=== PATIENT | female | born 1990 | race Caucasian/White ===

== ENCOUNTER 2017-08-04 08:04 | Inpatient (IN) | payer OTHER ==
[2017-08-04] MEDS ORDERED: OXYTOCIN/RINGERS LACTATE 1,000 ML IV PRN (08:34)
[2017-08-04] MEDS ORDERED: TERBUTALINE SULFATE 1 MG/ML VIAL IV PRN (08:34)
[2017-08-04] MEDS ORDERED: OLIVE OIL 118 ML BTL MISC PRN (08:34)
[2017-08-04] MEDS ORDERED: IBUPROFEN 600 MG TAB PO PRN (08:34)
[2017-08-04] MEDS ORDERED: EPSOM SALT 454 GM TP PRN (08:34)
[2017-08-04] MEDS ORDERED: LR 500 ML IV PRN (08:35)
[2017-08-04] MEDS ORDERED: LIDOCAINE 1% 300 MG/30 ML SDV ONE (08:54)
[2017-08-04] MEDS ORDERED: OLIVE OIL 118 ML BTL ONE (08:54)
[2017-08-04] MEDS ORDERED: TERBUTALINE SULFATE 1 MG/ML VIAL ONE (08:55)
[2017-08-04] MEDS ORDERED: MISOPROSTOL 200 MCG TAB ONE (08:55)
[2017-08-04] MEDS ORDERED: OXYTOCIN 10 UNIT/ML VIAL ONE (08:55)
[2017-08-04] MEDS ORDERED: AMMONIA AROMATIC 1 EACH AMP IH ONE (08:55)
[2017-08-04] MEDS ORDERED: OXYTOCIN/RINGERS LACTATE 500 ML IV SCH (09:00)
[2017-08-04 09:30] LABS: % IMMATURE GRANULYOCYTES 1.6 % (0.0-1.1); ABSOLUTE IMMATURE GRANULOCYTES 0.25 10^3/uL (0.00-0.10); ADD DIFF? NO; ADD MORPH? NO; ADD SCAN? NO; ATYPICAL LYMPHOCYTE FLAG 0 (0-99); FRAGMENT RBC FLAG 0 (0-99); HEMATOCRIT 37.7 % (38.0-47.0); HEMOGLOBIN 13.3 g/dL (12.6-16.3); LEFT SHIFT FLG 10 (0-99); LIPEMIA HEMOLYSIS FLAG 90 (0-99); MEAN CELL HEMOGLOBIN 32.3 pg (27.9-34.1); MEAN CELL HEMOGLOBIN CONCENTR. 35.3 g/dL (32.4-36.7); MEAN CELL VOLUME 91.5 fL (81.5-99.8); MEAN PLATELET VOLUME 9.7 fL (8.7-11.7); PLATELET CLUMPS FLAG 10 (0-99); PLATELET COUNT 324 10^3/uL (150-400); RED BLOOD CELL COUNT 4.12 10^6/uL (4.18-5.33); RED CELL DISTRIBUTION WIDTH 13.2 % (11.5-15.2)
[2017-08-04] MEDS: LR 1,000 ML IV PRN (10:00)
[2017-08-04] MEDS: OXYTOCIN/LR *STANDARD DOSE PROTOCOL IV SCH (10:00)
--- NOTE | 2017-08-04 11:22 | GHP ---
[f rep st] PREOP HISTORY AND PHYSICAL DATE OF ADMISSION: 08/04/2017 ADMISSION DIAGNOSIS: 1. Intrauterine at 39 and 3/7 weeks gestation. 2. Spontaneous rupture of membranes. HISTORY: The patient is a 27-year-old, 1, para 0, who is 39 and 3/7 weeks' gestation. She h as spontaneous rupture of membranes just after midnight this morning. The patient has waited 8+ hour s and has not had any contractions increasing in frequency or intensity, so she came in for augmentat ion of labor. On arrival, the patient was noted to be grossly ruptured. She was 1 cm dilated, 50% effaced, and -2 station. heart tracing was category 1, and she was not having any contractions. Management op tions were reviewed. Decision was made to proceed with starting with Pitocin augmentation. The elier ent plans to get an epidural for pain management, but might want to try nitrous prior to that. The patient received initiated care in the 1st trimester with the [facility] in [place] and transferred to [facility] at 18 weeks gestation due to desire to deliver at [facility]. The patient's has been uncomplicated. She did get a growth ultrasound in the 3rd trimester secondary to 92nd percentile, estimated weight, and her anatomy. Her ultr asound at 33 weeks showed 89th percentile. MEDICAL HISTORY: Significant for history of pyelonephritis. History of hematuria with unknown etiol ogy in . MEDICATIONS: vitamins, iron, and DHA. SURGICAL HISTORY: [place] teeth extraction. ALLERGIES: No known drug allergies. She is allergic to bees. SOCIAL HISTORY: Patient is . She works as a property field adjuster. She denies tobacco, alcohol, or drug use. FAMILY MEDICAL HISTORY: Noncontributory. MISSION MANAGER HISTORY: Menarche age 12. Periods were irregular, lasting 4 days. She is a 1, para 0. The patient's has been uncomplicated. She has been followed for size greater than date s and her most recent ultrasound a few weeks ago showed baby in the 89th percentile. Patient denies any history of any abnormal Pap smears or sexually transmitted diseases. REVIEW OF SYSTEMS: 10-point review of systems is negative. She states there is loss of clear fluid. She denies any vaginal bleeding. There is good movement. Denies any contractions. Denies a ny headache or changes in vision, nausea, or vomiting. PHYSICAL EXAM: VITAL SIGNS: Stable. GENERAL APPEARANCE: Alert and oriented x3. PSYCH: She has a ppropriate affect. NECK: Mobile and supple. HEART: Rate is . LUNGS: Clear to auscultat ion bilaterally. ABDOMEN: Gravid. Nondistended, nontender. EXTREMITIES: No calf tenderness or alejandra ma. PELVIC: She is 1 cm dilated, 50% effaced, and -2 station. Grossly ruptured infant in the verte x presentation. heart tracings category She is now having occasional contractions now that she is on Pitocin. LABS: Blood type A positive. Antibody screen negative. Rubella immune. GBS negative. HB sAg negative. HIV negative. Her 50 g glucose was 101. She had negative Trio screen. Negative AFP. Declined other genetic testing. ASSESSMENT/PLAN: 27-year-old 1, para 0, who is 39 and 3/7 weeks gestation with spontaneous r upture of membranes and not in labor after 10 hours. The patient is started on Pitocin and will be m anaged actively. /[id number]/MODL
--- NOTE | 2017-08-04 12:54 | OBPROG ---
Labor Progress Note Assessment/Plan: Assessment: Plan: Subjective/Intrapartum Course: 08/04/17 12:51 patient occasionally feeling contractions. starting to get stronger. Pitocin is at 10 mu. status is reassuring. contractions regular. if not much more uncomfortable in 2 hours will reexamine and if no further change will dc pitocin and give po cytotec. if progresses into labor will reexamine. Objective: 08/04/17 09:10 Patient ABO/Rh A POSITIVE 08/04/17 09:10 - SVE Membranes: SROM Amniotic Fluid Color: Clear - Contraction Pattern Assessment Current Contraction Pattern: Regular - FHR Assessment Sifuentes FHR (bpm): 130 FHR Pattern Variability: Moderate FHR Category: 1 - AP Antepartum Course: 08/04/17 12:54 initiated care in [place]. transferred to [facility] at 18 weeks. had persistent hematuria in early which resolved. lga on ultrasound. growth ultrasound at 34 weeks 89%. SROM just after midnight. no active labor so came in after 8 hours for augmentation. Oxytocin Orders Assessment - Pre-Induction/Augmentation Assessment Gestational Age: 39 week(s) and 3 day(s) ICD10 Worksheet Patient Problems: Problems Problem Status Onset Spontaneous rupture of membranes Acute Spontaneous vaginal delivery Acute
[2017-08-04] MEDS ORDERED: MISOPROSTOL 100 MCG TAB PO ONE ×2 (15:45→21:00)
--- NOTE | 2017-08-04 19:14 | OBPROG ---
Labor Progress Note Assessment/Plan: Assessment: Plan: Subjective/Intrapartum Course: 08/04/17 12:51 patient occasionally feeling contractions. starting to get stronger. Pitocin is at 10 mu. status is reassuring. contractions regular. if not much more uncomfortable in 2 hours will reexamine and if no further change will dc pitocin and give po cytotec. if progresses into labor will reexamine. 08/04/17 19:12 patient was up to 14 mu of pitocin and only feeling mild contractions. had another big gush of clear fluid. SVE by nurse - no cervical change. pitocin was discontinued. patient was allowed to eat and then given a dose of 25 mcg of cytotec at 1600. patient is sleeping and having occasional contractions. status is reassuring. if not in labor 4 hours after first dose of cytotec , will repeat dose q 4 hours until patient is in labor or cervix is more favorable. Objective: 08/04/17 09:10 Patient ABO/Rh A POSITIVE 08/04/17 09:10 - SVE Dilation (cm): 1, 2 Effacement (%): 50 Station: -2 Membranes: SROM Amniotic Fluid Color: Clear - Contraction Pattern Assessment Current Contraction Pattern: Regular - FHR Assessment Sifuentes FHR Pattern Variability: Moderate FHR Category: 1 - AP Antepartum Course: 08/04/17 12:54 initiated care in [place]. transferred to [facility] at 18 weeks. had persistent hematuria in early which resolved. lga on ultrasound. growth ultrasound at 34 weeks 89%. SROM just after midnight. no active labor so came in after 8 hours for augmentation. Oxytocin Orders Assessment - Pre-Induction/Augmentation Assessment Gestational Age: 39 week(s) and 3 day(s) ICD10 Worksheet Patient Problems: Problems Problem Status Onset Spontaneous rupture of membranes Acute
--- NOTE | 2017-08-04 21:48 | OBPROG ---
Labor Progress Note Assessment/Plan: Assessment: Plan: Subjective/Intrapartum Course: 08/04/17 12:51 patient occasionally feeling contractions. starting to get stronger. Pitocin is at 10 mu. status is reassuring. contractions regular. if not much more uncomfortable in 2 hours will reexamine and if no further change will dc pitocin and give po cytotec. if progresses into labor will reexamine. 08/04/17 19:12 patient was up to 14 mu of pitocin and only feeling mild contractions. had another big gush of clear fluid. SVE by nurse - no cervical change. pitocin was discontinued. patient was allowed to eat and then given a dose of 25 mcg of cytotec at 1600. patient is sleeping and having occasional contractions. status is reassuring. if not in labor 4 hours after first dose of cytotec , will repeat dose q 4 hours until patient is in labor or cervix is more favorable. 08/04/17 21:45 patient has been able to rest. feeling mild cramping. received second dose of cytotec. vertex confirmed by ultrasound. sve 80/-2. discussed rationale for changing from pitocin to cytotec. if not in active labor 5 hours after last cytotec dose will start pitocin. patient plans epidural. status reassuring. patient continues to leak clear fluid. Objective: 08/04/17 09:10 Patient ABO/Rh A POSITIVE 08/04/17 09:10 - SVE Dilation (cm): 3 Effacement (%): 80 Station: -2 Membranes: SROM Amniotic Fluid Color: Clear - Contraction Pattern Assessment Current Contraction Pattern: Regular - FHR Assessment Sifuentes FHR (bpm): 140 FHR Pattern Variability: Moderate FHR Category: 1 - AP Antepartum Course: 08/04/17 12:54 initiated care in [place]. transferred to [facility] at 18 weeks. had persistent hematuria in early which resolved. lga on ultrasound. growth ultrasound at 34 weeks 89%. SROM just after midnight. no active labor so came in after 8 hours for augmentation. Oxytocin Orders Assessment - Pre-Induction/Augmentation Assessment Gestational Age: 39 week(s) and 3 day(s) ICD10 Worksheet Patient Problems: Problems Problem Status Onset Spontaneous rupture of membranes Acute
[2017-08-05] MEDS: OXYTOCIN/LR *STANDARD DOSE PROTOCOL IV SCH (01:44)
[2017-08-05] MEDS: LR 1,000 ML IV PRN (05:53)
[2017-08-05] MEDS ORDERED: fentaNYL 2MCG/ML/BUP 0.1% RTU 100 ML BAG EP ONE (07:13)
[2017-08-05] MEDS ORDERED: PHENYLEPHRINE HCL 100 MCG/ML SYR ONE (07:20)
[2017-08-05] MEDS ORDERED: ONDANSETRON 4 MG/2 ML VIAL IVP PRN (07:47)
[2017-08-05] MEDS ORDERED: PHENYLEPHRINE HCL 100 MCG/ML SYR IVP PRN (07:47)
[2017-08-05] MEDS ORDERED: METOCLOPRAMIDE 10 MG/2 ML VIAL IVP PRN (07:47)
--- NOTE | 2017-08-05 07:51 | OBPROG ---
Labor Progress Note Assessment/Plan: Assessment:cat 2 fhr contractions irregular pitocin per protocol 14mu change in cervix 5/100/-1 cephalic + bloody show epidural for pain relief at patients request consult physcian as needed for poc and support Plan:pitocin per protocol, epidural for pain relief, monitor for chorio 08/05/17 07:49 Subjective/Intrapartum Course: 08/04/17 12:51 patient occasionally feeling contractions. starting to get stronger. Pitocin is at 10 mu. status is reassuring. contractions regular. if not much more uncomfortable in 2 hours will reexamine and if no further change will dc pitocin and give po cytotec. if progresses into labor will reexamine. 08/04/17 19:12 patient was up to 14 mu of pitocin and only feeling mild contractions. had another big gush of clear fluid. SVE by nurse - no cervical change. pitocin was discontinued. patient was allowed to eat and then given a dose of 25 mcg of cytotec at 1600. patient is sleeping and having occasional contractions. status is reassuring. if not in labor 4 hours after first dose of cytotec , will repeat dose q 4 hours until patient is in labor or cervix is more favorable. 08/04/17 21:45 patient has been able to rest. feeling mild cramping. received second dose of cytotec. vertex confirmed by ultrasound. sve 3/80/-2. discussed rationale for changing from pitocin to cytotec. if not in active labor 5 hours after last cytotec dose will start pitocin. patient plans epidural. status reassuring. patient continues to leak clear fluid. 08/05/17 07:49 Feeling better after the epidural. Denies pain now. Objective: 08/04/17 09:10 Patient ABO/Rh A POSITIVE 08/04/17 09:10 - SVE Dilation (cm): 5 Effacement (%): 100 Station: -1 Membranes: SROM Amniotic Fluid Color: Clear - Contraction Pattern Assessment Current Contraction Pattern: Regular - AP Antepartum Course: 08/04/17 12:54 initiated care in [place]. transferred to [facility] at 18 weeks. had persistent hematuria in early which resolved. lga on ultrasound. growth ultrasound at 34 weeks 89%. SROM just after midnight. no active labor so came in after 8 hours for augmentation. Oxytocin Orders Assessment - Pre-Induction/Augmentation Assessment Gestational Age: 39 week(s) and 3 day(s) ICD10 Worksheet Patient Problems: Problems Problem Status Onset Spontaneous rupture of membranes Acute
[2017-08-05] MEDS ORDERED: LR 500 ML IV SCH (08:00)
[2017-08-05] MEDS ORDERED: fentaNYL 2MCG/ML/BUP 0.1% RTU 100 ML EP SCH (08:00)
--- NOTE | 2017-08-05 15:15 | OBDEL ---
Info Type: Vaginal Presentation at Delivery: Vertex L&D Analgesia/Anesthesia Type: Epidural GBS+: No Intrapartum Medications: Generic Name Dose Route Start Last Admin Trade Name Freq PRN Reason Stop Dose Admin Lactated Ringer's 1,000 mls @ 0 mls/hr 08/04/17 08:34 08/05/17 05:53 Lr IV 01/31/18 08:33 1,000 mls PRN PRN Administration SEE PROTOCOL CONDITIONS Protocol Per Protocol Oxytocin 30 unit/ Lactated 503 mls @ 0 mls/hr 08/04/17 09:30 08/05/17 01:44 Ringer's IV 01/31/18 09:29 500 mls CONT PATRICIA Administration Protocol Per Protocol Discontinued Medications Generic Name Dose Route Start Last Admin Trade Name Freq PRN Reason Stop Dose Admin Misoprostol 25 mcg 08/04/17 15:45 08/04/17 15:54 Cytotec PO 08/04/17 15:46 25 mcg ONCE ONE Administration Misoprostol 25 mcg 08/04/17 21:00 08/04/17 21:10 Cytotec PO 08/04/17 21:01 25 mcg ONCE ONE Administration - Hospital Course Intrapartum: 08/04/17 12:51 patient occasionally feeling contractions. starting to get stronger. Pitocin is at 10 mu. status is reassuring. contractions regular. if not much more uncomfortable in 2 hours will reexamine and if no further change will dc pitocin and give po cytotec. if progresses into labor will reexamine. 08/04/17 19:12 patient was up to 14 mu of pitocin and only feeling mild contractions. had another big gush of clear fluid. SVE by nurse - no cervical change. pitocin was discontinued. patient was allowed to eat and then given a dose of 25 mcg of cytotec at 1600. patient is sleeping and having occasional contractions. status is reassuring. if not in labor 4 hours after first dose of cytotec , will repeat dose q 4 hours until patient is in labor or cervix is more favorable. 08/04/17 21:45 patient has been able to rest. feeling mild cramping. received second dose of cytotec. vertex confirmed by ultrasound. sve 3/80/-2. discussed rationale for changing from pitocin to cytotec. if not in active labor 5 hours after last cytotec dose will start pitocin. patient plans epidural. status reassuring. patient continues to leak clear fluid. 08/05/17 07:49 Feeling better after the epidural. Denies pain now. Indications for Delivery: SROM Vaginal Delivery - Delivery Provider Delivery Physician/CNM: Citlalli Tomlinson Proctoring Provider: Savanna Downs - Labor and Delivery Onset of Contractions Date: 08/05/17 Onset of Contractions Time: 05:00 Onset of Contractions Type: Augmented Rupture of Membranes Date: 08/04/17 Rupture of Membranes Time: 00:15 Rupture of Membranes Type: Spontaneous Amniotic Fluid Color: Clear Dilation Complete Date: 08/05/17 Dilation Complete Time: 13:00 Placenta Delivery Date: 08/05/17 Placenta Delivery Time: 14:47 Total Hours of Labor: 9 Laceration: 2nd Degree Repair: 3-0, Vicryl Vaginal Sponge Count Correct: Yes Vaginal Needle Count Correct: Yes Vaginal Sweep Performed: Yes EBL: 400 Delivery Events: Nuchal Cord, Other (Specify) (cytotec 800mcg, pitocin 10mu im, pitocin IV once working. vaginal sweeep prolonged rom ancef 2gm ivpbx1) - Medications Labor Augmentation/Induction Methods Used: Pitocin, Other (Specify) (cytotec x2 for ripening of cervix) Labor Augmentation/Induction Indication: Contraction Strength Inadequate, Other (Specify) (prolonged rom) Data Sifuentes Delivery Date: 08/05/17 Delivery Time: 14:42 CHRISTINE: 08/06/17 Gestational Age: 39 week(s) and 6 day(s) Sex of Infant: Male Score (1 Min): 8 Score (5 Min): 9 ICD10 Worksheet Patient Problems: Problems Problem Status Onset Spontaneous rupture of membranes Acute
[2017-08-05] MEDS ORDERED: HYDROCORTISONE 0.5% CREAM TP PRN (15:20)
[2017-08-05] MEDS ORDERED: DOCUSATE SODIUM 100 MG CAP PO PRN (15:20)
[2017-08-05] MEDS ORDERED: HYDROCODONE/APAP 5/325 TAB PO PRN (15:20)
[2017-08-05] MEDS ORDERED: SIMETHICONE 80 MG TAB CHEW PO PRN (15:20)
[2017-08-05] MEDS ORDERED: OXYTOCIN 10 UNIT/ML VIAL IM ONE (15:21)
[2017-08-05] MEDS ORDERED: ceFAZolin 2 GM in D5W 100 ML IV ONE (15:22)
[2017-08-05] MEDS ORDERED: ceFAZolin 2 GM/DEXTROSE 100 ML IV ONE (15:30)
[2017-08-05] MEDS ORDERED: MISOPROSTOL 200 MCG TAB PR SCH (15:30)
--- NOTE | 2017-08-05 15:49 | POSTANESTH ---
Post Anesthetic Evaluation Cardiovascular Status: Normal, Stable Respiratory Status: Normal, Stable Level of Consciousness/Mental Status: Can Participate in Eval, Alert and Oriented Pain Control: Adequate, Prn Tx Ordered (Placenta Delivery Time is 14:47 and is the Epidrual End Time) Nausea/Vomiting Control: Adequate, Prn Tx Ordered Complications Possibly Related to Anesthesia: None Noted
[2017-08-05] MEDS ORDERED: EPSOM SALT 454 GM TP PRN ×2 (20:15→21:15)
[2017-08-05] MEDS: IBUPROFEN 600 MG TAB PO PRN (21:23)
[2017-08-06] MEDS: IBUPROFEN 600 MG TAB PO PRN ×3 (03:43→18:16)
--- NOTE | 2017-08-06 06:25 | OBPP ---
Progress Note Assessment/Plan: Assessment:doing well pain well managed well nipples intact ff@u scant rubra lochia perineum approximated voiding with difficulty swelling in lower extremitys 2+ materanal tachycardia Plan:expectant management pp day 1 08/05/17 07:49 08/06/17 06:23 Subjective/ Course: Doing well denies difficulties. well. Voiding without difficulty. Scant rubra lochia 08/06/17 06:22 Objective: 08/04/17 09:10 Patient ABO/Rh A POSITIVE 08/04/17 09:10 Temp Pulse Resp BP Pulse Ox 36.7 C 104 H 18 112/71 95 08/06/17 04:00 08/06/17 04:00 08/06/17 04:00 08/06/17 04:00 08/06/17 04:00 Uterine Position/Fundal Height: At Umbilicus Uterine Tone: Firm Physical Exam - Physical Exam General Appearance: WD/WN, alert, no apparent distress Respiratory: chest non-tender, lungs clear, normal breath sounds Cardiac/Chest: regular rate, rhythm Abdomen: other (ff@u) Extremities: normal range of motion, swelling (2+ pedal edema), Karolina's sign ( negative bilaterally) DTR- Lower Extremities: Knee (R): 1+, Knee (L): 1+ (no clonus) Skin: normal color, warm/dry Neuro/Psych: no motor/sensory deficits, alert, normal mood/affect, oriented x 3
[2017-08-06 09:14] VITALS: RESP 16
[2017-08-06] MEDS: DOCUSATE SODIUM 100 MG CAP PO PRN (21:57)
[2017-08-07] MEDS: IBUPROFEN 600 MG TAB PO PRN ×2 (00:59→07:52)
[2017-08-07] MEDS ORDERED: SUCROSE 1 EA UDL ONE (05:30)
[2017-08-07] MEDS: DOCUSATE SODIUM 100 MG CAP PO PRN (07:53)
[2017-08-07 08:41] VITALS: BP 125/84; PULSE 102; TEMP 97; O2SAT 97
--- NOTE | 2017-08-07 10:11 | OBGCSDC ---
General Delivery Information - General Info : 1 Para: 1 Abortions: 0 Type: Vaginal L&D Analgesia/Anesthesia Type: Epidural Admission Date: 08/04/17 Labs: Patient ABO/Rh A POSITIVE 08/04/17 09:10 Hct 37.7 % (38.0-47.0) L 08/04/17 09:10 - Hospital Course Antepartum: 08/04/17 12:54 initiated care in [place]. transferred to [facility] at 18 weeks. had persistent hematuria in early which resolved. lga on ultrasound. growth ultrasound at 34 weeks 89%. SROM just after midnight. no active labor so came in after 8 hours for augmentation. Intrapartum: 08/04/17 12:51 patient occasionally feeling contractions. starting to get stronger. Pitocin is at 10 mu. status is reassuring. contractions regular. if not much more uncomfortable in 2 hours will reexamine and if no further change will dc pitocin and give po cytotec. if progresses into labor will reexamine. 08/04/17 19:12 patient was up to 14 mu of pitocin and only feeling mild contractions. had another big gush of clear fluid. SVE by nurse - no cervical change. pitocin was discontinued. patient was allowed to eat and then given a dose of 25 mcg of cytotec at 1600. patient is sleeping and having occasional contractions. status is reassuring. if not in labor 4 hours after first dose of cytotec , will repeat dose q 4 hours until patient is in labor or cervix is more favorable. 08/04/17 21:45 patient has been able to rest. feeling mild cramping. received second dose of cytotec. vertex confirmed by ultrasound. sve 3/80/-2. discussed rationale for changing from pitocin to cytotec. if not in active labor 5 hours after last cytotec dose will start pitocin. patient plans epidural. status reassuring. patient continues to leak clear fluid. 08/05/17 07:49 Feeling better after the epidural. Denies pain now. : Doing well denies difficulties. well. Voiding without difficulty. Scant rubra lochia 08/06/17 06:22 08/07/17 10:04 Pt is doing well today. She has min perineal pain and lochia. Muscle soreness controlled by Ibuprofen. Baby had elevated bilirubin now under the blanket and numbers have improved. They are nursing well and ready to d/c home. Objective, AFVSS Gen WDWN W female NAD Chest: CTA B CV: RRR no murmur Abd: ND/ NT nml BS UFF U-2 Ext: no edema, NT neg Karolina's A/P 26 y/o PPD #2 s/p after prolonged ROM doing well. D/c home today with Ibuprofen. Follow-up @ [facility] 4 and 6 weeks. Vaginal - Delivery Provider Delivery Physician/CNM: Citlalli Tmolinson - Diagnosis Labor: Augmented Rupture of Membranes Type: Spontaneous Amniotic Fluid Color: Clear Laceration: 2nd Degree Repair: 3-0, Vicryl Delivery Events: Nuchal Cord, Other (Specify) (cytotec 800mcg, pitocin 10mu im, pitocin IV once working. vaginal sweeep prolonged rom ancef 2gm ivpbx1) - Delivery EBL: 400 [place] Data Sifuentes Delivery Date: 08/05/17 Delivery Time: 14:42 CHRISTINE: 08/08/17 Gestational Age: 39 week(s) and 6 day(s) Sex of Infant: Male Weight (gm): 4025.632 g Score (1 Min): 8 Score (5 Min): 9 Discharge Information - Discharge Information Prescriptions: Ibuprofen [Motrin (*)] 600 mg PO Q6H PRN #30 tab PRN Reason: PAIN MILD Condition: Good Instruction/Follow Up: Four Weeks, Six Weeks
== END 2017-08-07 12:00 | disposition home or self-care (01) | DRG 775 ==
LOC: OBSVTOIN 08:04 → FLD 08:04 → FOB 08-05 17:59
PROVIDERS: ADMIT Obstetrics & Gynecology; ATTEND Obstetrics & Gynecology
PROC: 0KQM0ZZ Repair Perineum Muscle, Open Approach (ICD-10-PCS; principal; 2017-08-05)
PROC: 10E0XZZ Delivery of Products of Conception, External Approach (ICD-10-PCS; principal; 2017-08-05)
DX: O69.82X0 Labor and delivery complicated by other cord entanglement, without compression, not applicable or unspecified (principal); Z37.0 Single live birth; Z3A.39 39 weeks gestation of pregnancy; O70.1 Second degree perineal laceration during delivery
CPT/HCPCS: J0690; J2370; J3105